=== PATIENT | female | born 1975 | race Caucasian/White ===

== ENCOUNTER 2018-02-17 20:37 | Emergency (ER) | payer MEDICAID, SELFPAY ==
[2018-02-17 20:57] VITALS: BP 150/101; PULSE 95; RESP 18; TEMP 36.6; O2SAT 99; BMI 25.0
--- NOTE | 2018-02-17 21:01 | HMH.EDUTC ---
[facility] [place] Clinical Impression: Medication refill Disposition: Home, Self-Care Condition on Discharge: Good Instructions: Lisinopril, Duloxetine, Linaclotide Additional Instructions: Follow up with family doctor for further prescriptions for home medications Follow up with family doctor as scheduled REtrun if needed Straight to ER if any life threatening symptoms or complaints Prescriptions: Duloxetine HCl [Cymbalta] 60 mg PO DAILY #30 capsule. Linaclotide [Linzess] 290 mcg PO DAILY #30 cap Lisinopril [Lisinopril 30mg Tablet] 30 mg PO DAILY #30 tab Time of Disposition: 21:11 Medical Decision Making - Medical Records Medical records reviewed: Yes: I reviewed the patient's medical records. - Alex Inquiry Pt receiving controlled substance: No Alex was queried for this patient: No Vital Signs: 02/17/18 20:57 Temperature 97.9 F Temperature Source Oral Pulse Rate [Right Radial] 95 H Respiratory Rate 18 Blood Pressure [Right Arm] 150/101 Blood Pressure Mean [Right Arm] 117 02 Sat by Pulse Oximetry 99 Oxygen Delivery Method Room Air [facility] [place] HPI - General Stated complaint: prescription refill Time Seen by Provider: 02/17/18 20:55 Mode of Arrival: Family Vehicle Source of Information: Patient Limitations: No Limitations Description of Symptoms (Recalled from Triage Doc. by RN): PT NEEDS RX REFILL. HEENT Symptoms (Recalled from RN notes): No Resp Symptoms (Recalled from RN notes): No Skin Symptoms (Recalled from RN notes): No MS Symptoms (Recalled from RN notes): No Functional Status (Recalled from RN notes): NA - History of Present Illness Provider Complaint: Patient state that she just moved here from [place] and said that after she got here she was unable to get her medication filled because her insurance would not cover it with an out of state doctor. State that she has been out of her blood pressure medication, depression medication and linzess for several days now and wanted to get enough medication to last her until she seen her new family doctor in a couple of weeks - Related Data Previous Rx's Medication Instructions Recorded Duloxetine HCl [Cymbalta] 60 mg PO DAILY #30 capsule. 02/17/18 Linaclotide [Linzess] 290 mcg PO DAILY #30 cap 02/17/18 Lisinopril [Lisinopril 30mg Tablet] 30 mg PO DAILY #30 tab 02/17/18 Allergies Allergy/AdvReac Type Severity Reaction Status Date / Time adhesive Allergy Verified 02/17/18 21:00 - Worker's Comp Is this a Worker's Comp case?: No [facility] History I have reviewed the patient's past medical history: Yes Medical History: Denies:: Cancer, Diabetes Mellitus Type 1, Diabetes Mellitus Type 2, MRSA Amputation: No Fractures: No - Social History Smoking Status: Current every day smoker Tobacco Type: cigarettes Alcohol Intake: never - Psychiatric History Expresses thoughts of harming self/others: None Suicide Plan Description: No Plan ROS Obtained: Yes All systems reviewed & no additional complaints - Allergic/Immunologic Comments: Medication refill Physical Exam - General General appearance: alert - ENT ENT exam: Present: normal exam, normal oropharynx, mucous membranes moist, TM's normal bilaterally, normal external ear exam - Respiratory Respiratory exam: Present: normal lung sounds bilaterally. Absent: respiratory distress - Cardiovascular Cardiovascular exam: Present: regular rate, normal rhythm. Absent: JVD - Abdominal Exam Abdominal exam: Present: soft, normal bowel sounds. Absent: distention, tenderness, guarding - Neurological Exam Neurological exam: Present: alert, oriented X3 - Other Other exam information: Patient been out of her medication for several days and here to see if she can get a prescription for her home medications to last until she is seen by her new family doctor here
--- NOTE | 2018-02-17 21:04 | ED_ITS ---
[facility] [place] Clinical Impression: Medication refill Disposition: Home, Self-Care Condition on Discharge: Good Instructions: Lisinopril, Duloxetine, Linaclotide Additional Instructions: Follow up with family doctor for further prescriptions for home medications Follow up with family doctor as scheduled REtrun if needed Straight to ER if any life threatening symptoms or complaints Prescriptions: Duloxetine HCl [Cymbalta] 60 mg PO DAILY #30 capsule. Linaclotide [Linzess] 290 mcg PO DAILY #30 cap Lisinopril [Lisinopril 30mg Tablet] 30 mg PO DAILY #30 tab Time of Disposition: 21:11 Medical Decision Making - Medical Records Medical records reviewed: Yes: I reviewed the patient's medical records. - Alex Inquiry Pt receiving controlled substance: No Alex was queried for this patient: No Vital Signs: 02/17/18 20:57 Temperature 97.9 F Temperature Source Oral Pulse Rate [Right Radial] 95 H Respiratory Rate 18 Blood Pressure [Right Arm] 150/101 Blood Pressure Mean [Right Arm] 117 02 Sat by Pulse Oximetry 99 Oxygen Delivery Method Room Air [facility] [place] - General Stated complaint: prescription refill Time Seen by Provider: 02/17/18 20:55 Mode of Arrival: Family Vehicle Source of Information: Patient Limitations: No Limitations Description of Symptoms (Recalled from Triage Doc. by RN): PT NEEDS RX REFILL. HEENT Symptoms (Recalled from RN notes): No Resp Symptoms (Recalled from RN notes): No Skin Symptoms (Recalled from RN notes): No MS Symptoms (Recalled from RN notes): No Functional Status (Recalled from RN notes): NA - History of Present Illness Provider Complaint: Patient state that she just moved here from [place] and said that after she got here she was unable to get her medication filled because her insurance would not cover it with an out of state doctor. State that she has been out of her blood pressure medication, depression medication and linzess for several days now and wanted to get enough medication to last her until she seen her new family doctor in a couple of weeks - Related Data Previous Rx's Medication Instructions Recorded Duloxetine HCl [Cymbalta] 60 mg PO DAILY #30 capsule. 02/17/18 Linaclotide [Linzess] 290 mcg PO DAILY #30 cap 02/17/18 Lisinopril [Lisinopril 30mg Tablet] 30 mg PO DAILY #30 tab 02/17/18 Allergies Allergy/AdvReac Type Severity Reaction Status Date / Time adhesive Allergy Verified 02/17/18 21:00 - Worker's Comp Is this a Worker's Comp case?: No [facility] History I have reviewed the patient's past medical history: Yes Medical History: Denies:: Cancer, Diabetes Mellitus Type 1, Diabetes Mellitus Type 2, MRSA Amputation: No Fractures: No - Social History Smoking Status: Current every day smoker Tobacco Type: cigarettes Alcohol Intake: never - Psychiatric History Expresses thoughts of harming self/others: None Suicide Plan Description: No Plan ROS Obtained: Yes All systems reviewed & no additional complaints - Allergic/Immunologic Comments: Medication refill Physical Exam - General General appearance: alert - ENT ENT exam: Present: normal exam, normal oropharynx, mucous membranes moist, TM's normal bilaterally, normal external ear exam - Respiratory Respiratory exam: Present: normal lung sounds bilaterally. Absent: respiratory distress
[2018-02-17 21:12] VITALS: BP 148/100; PULSE 98; RESP 18; TEMP 36.6; O2SAT 100
== END 2018-02-17 21:14 | disposition home or self-care (01) ==
PROVIDERS: Emergency Provider Nurse Practitioner
DX: Z76.0 Encounter for issue of repeat prescription (principal); I10 Essential (primary) hypertension; F32.9 Major depressive disorder, single episode, unspecified; F17.210 Nicotine dependence, cigarettes, uncomplicated
CPT/HCPCS: 99201